=== PATIENT | female | born 1955 | race Caucasian/White ===

== ENCOUNTER 2020-07-22 16:41 | Outpatient (REF) | payer OTHER, SELFPAY | END 2020-07-22 16:42 | disposition home or self-care (01) | LOC: HO.LAB 16:41 | PROVIDERS: PCP Internal Medicine; Visit Provider Internal Medicine | DX: Z20.828 Contact with and (suspected) exposure to other viral communicable diseases (principal) | CPT/HCPCS: C9803; U0003 ==

== ENCOUNTER 2022-09-15 11:50 | Outpatient (REF) | payer MEDICARE, MEDICAID, SELFPAY ==
--- NOTE | ~2022-09-15 | XR_ITS ---
EXAMINATION: XR FOOT, RIGHT CLINICAL INFORMATION: Pain COMPARISON: None TECHNIQUE: AP, lateral, and oblique views of the right foot. FINDINGS: Osteopenia. No fracture or dislocation. Appropriate alignment. Joint spaces are mildly narrowed throughout the interphalangeal joints. There is prominent hypertrophic spurring at the plantar aponeurosis and Achilles insertion to the calcaneus. No ankle joint effusion. Vascular calcifications are present. XR/XR foot RT min 3V IMPRESSION: No fracture or malalignment. Prominent heel spurs. Mild degenerative changes.
== END 2022-09-15 11:51 | disposition home or self-care (01) ==
LOC: HO.HMGCX 11:50
PROVIDERS: Visit Provider Nurse Practitioner Family
DX: M79.672 Pain in left foot (principal)
CPT/HCPCS: 73630

== ENCOUNTER 2023-01-11 14:05 | Outpatient (REF) | payer MEDICARE, SELFPAY ==
--- NOTE | ~2023-01-11 | MM_ITS ---
EXAMINATION: BONE DENSITOMETRY CLINICAL INDICATION: Osteoporosis. COMPARISON: None (current study represents initial baseline exam). TECHNIQUE: Using a [employer] DXA System (software version: 13.1) manufactured by [employer], dual-energy x-ray absorptiometry was performed of the lumbar spine and left hip. The images are of good technical quality. Summary results are attached. FINDINGS: AP SPINE L1-L4: BMD 0.880 g/cm2, Z-score -0.8, T-score -2.5, osteoporosis. LEFT FEMUR, NECK: BMD 0.713 g/cm2, Z-score -0.8, T-score -2.3, osteopenia. LEFT FEMUR, TOTAL: BMD 0.719 g/cm2, Z-score -1.0, T-score -2.3, osteopenia. IDENTIFIED RISK FACTORS: Osteoporosis, menopause, secondary osteoporosis. HISTORY OF FRACTURE: None listed. MEDICATIONS: None listed. MM/XR DEXA axial skeleton IMPRESSION: 1. DIAGNOSIS: Osteoporosis based on the lowest T-score value of -2.5 in the lumbar spine applying World Health Organization criteria. 2. 10-YEAR FRACTURE RISK PREDICTION, FRAX: According to the guidelines, FRAX calculation should only be performed on patients in the osteopenia bone density category. Therefore, FRAX was not performed on this patient. 3. Treatment Recommendations: NOF guidelines recommend consideration for treatment in postmenopausal women and men age 50 and older presenting with the following: -A hip or vertebral (clinical or morphometric) fracture. -T-score less than or equal to -2.5 at the femoral neck or spine after appropriate evaluation to exclude secondary causes. -Low bone mass at the hip or spine and a 10-year fracture probability by FRAX of greater than or equal to 3% for hip fracture or greater than or equal to 20% for major osteoporotic fracture based on the [place] adapted WHO algorithm. 4. Other Recommendations: All treatment decisions require clinical judgment and consideration of individual patient factors, including patient preferences, comorbidities, previous drug use, risk factors not captured in the FRAX model (e.g. frailty, falls, vitamin D deficiency, increased bone turnover, interval significant decline in bone density) and possible under or overestimation of fracture risk by FRAX. Additional medical evaluation for secondary cause of low bone mineral density may be appropriate. FUTURE SCAN RECOMMENDATION: People with diagnosed cases of osteoporosis or at high risk for fracture should have regular bone mineral density tests. For patients eligible for Medicare, routine testing is allowed once every 2 years. The testing frequency can be increased to one year for patients who have rapidly progressing disease, those who are receiving or discontinuing medical therapy to restore bone mass, or have additional risk factors.
--- NOTE | ~2023-01-11 | MM_ITS ---
EXAMINATION: MM SCREENING DIGITAL BREAST TOMOSYNTHESIS, BILATERAL CLINICAL INFORMATION: Screening. Asymptomatic. The lifetime risk of breast cancer based on the Tyrer-Cuzick Model is 3%. COMPARISON: Outside mammography 08/01/2019, 07/31/2018, 06/29/2017 ([facility]). TECHNIQUE: Digital breast tomosynthesis is performed in both the craniocaudal and mediolateral oblique views along with computer-aided detection (CAD). Synthesized 2D images are generated from the tomosynthesis. FINDINGS: The breasts are almost entirely fatty (ACR BI-RADS breast composition Category a). Background stromal markings are similar to prior outside exams. There is no developing density or architectural abnormality. There is a small stable benign nodule posterior outer right breast, likely intramammary node. There are no significant masses, abnormal calcifications, or other abnormalities. The axilla and skin contours are unremarkable. MM/MM tomosynthesis screening BI IMPRESSION: No mammographic evidence of malignancy. ASSESSMENT: BI-RADS 2: Benign RECOMMENDATION: Routine annual mammography screening. This patient's information was entered into a reminder system with a target due date for their next mammogram.
== END 2023-01-11 14:06 | disposition home or self-care (01) ==
LOC: HO.MAMMO 14:05
PROVIDERS: PCP Nurse Practitioner Family; Visit Provider Nurse Practitioner Family
DX: Z12.31 Encounter for screening mammogram for malignant neoplasm of breast (principal); Z13.820 Encounter for screening for osteoporosis; Z78.0 Asymptomatic menopausal state; M81.0 Age-related osteoporosis without current pathological fracture
CPT/HCPCS: 77063; 77067; 77080

== ENCOUNTER 2023-04-11 10:03 | Outpatient (AMB) | payer MEDICARE, SELFPAY ==
[2023-04-11 10:12] VITALS: BP 149/84; PULSE 74; BMI 28.5
--- NOTE | 2023-04-11 10:12 | MHC.OFFVIS ---
Intake Vital Signs 04/11/23 10:12 Height 4 ft 11 in Weight 141 lb 1.533 oz BMI 28.5 BP 149/84 H Blood Pressure Location Lt brachial Position Sitting Pulse 74 Intake Visit Reasons: pre colonoscopy screening Intake Note: Leonor presents in office as a new.patient for a colonoscopy screening. PT CC: pt reports having GERD , 2nd colo pt denies any other GI Issues Theology Professor Required: Yes Theology Professor Language: Polish Accompanied by: Self / Same As Patient Allergies No Known Allergies Allergy (Unverified 04/11/23 10:14) HPI pre colonoscopy screening HPI Details 67 year old? female with past medical history of hypertension, bladder prolapse, osteoporosis is here today for pre colonoscopy screening.? Patient was sent to us by her PCP.? Patient had colonoscopy in 2010 that showed no polyps. Patient has a history of gastric bypass in 2005. Reports to have occasional acid reflux depending on what she eats.? Patient denies any gastrointestinal symptoms in the past or at present.? Denies any personal or family history of gastrointestinal disease, colon polyps, or cancer.? Denies history of difficulty with sedation or anesthesia in the past.? Negative for history of sleep apnea.? Denies any history of cardiac, renal, pulmonary, or hepatic disease.?? No history of infectious? diseases like hepatitis A, B, C, HIV or tuberculosis.? Patient is not on any anticoagulation therapy. PFSH Surgical History Hx of bariatric surgery Hx of section Family History Father Prostate cancer Hx of heart surgery HTN (hypertension) Mother HTN (hypertension) Diabetes High cholesterol Hx of heart surgery Social History Household Members: Significant Other Alcohol intake: never Patient Tobacco Use Status: Never used Tobacco Review of Systems Const Denies weight gain and Denies weight loss ENT Reports no additional complaints, Denies dysphagia and Denies odynophagia Card Reports no additional complaints Resp Reports no additional complaints GI Denies abdominal pain, Denies belching, Denies melena, Denies bloating, Denies change in bowel habits, Denies dysphagia, Denies excessive flatus, Denies dyspepsia, Denies heartburn, Denies diarrhea, Denies loose stools, Denies nausea, Denies odynophagia and Denies vomiting Musc Reports no additional complaints Neuro Reports no additional complaints Psych Reports no additional complaints Endo Reports no additional complaints Physical Exam Vital Signs: Last Vital Signs Pulse 74 04/11/23 10:12 BP 149/84 H 04/11/23 10:12 BMI result Body Mass Index 28.5 Const General: healthy appearing, no acute distress and well developed Nutritional Appearance: well nourished Orientation/consciousness: patient oriented x3 HEENT Head: Yes normal to inspection, Yes normocephalic and Yes atraumatic Face and sinus: Yes normal facial exam Mouth: Normal oral and palatal mucosa present Throat: Yes posterior oropharynx normal, Yes tonsils normal and Yes uvula midline Eyes General: appearance normal, both eyes and all related structures Neck Neck: Yes normal visual inspection, Yes full ROM and Yes trachea midline Thyroid: Thyroid normal Resp Effort & Inspection: normal respiratory effort, able to speak in complete sentences, no tracheal deviation and symmetric chest movement Auscultation: clear to auscultation bilaterally Cardio Rate: regular rate Heart sounds: S1 normal heart sound present and S2 normal heart sound present GI Inspection: Yes normal to inspection and No distended Palpation (GI): Soft to palpation, not firm, nontender and No hepatosplenomegaly present Auscultation: normal bowel sounds General: Yes no CVA tenderness Back/Spine/Pelvis Back: no CVA tenderness Skin General skin exam: elasticity normal, turgor normal and dry skin Neuro General: patient oriented x3 Psych Appearance: grossly normal Mental Status: mental status grossly normal Speech and movement: Normal speech and movement present Assessment & Plan Assessment & Plan (1) Screen for colon cancer: Code(s): Z12.11 - Encounter for screening for malignant neoplasm of colon Plan: Patient denies any GI, cardiac or respiratory symptoms.? Denies any issues with anesthesia in the past.? Denies any history of sleep apnea.? No history infectious diseases in the past or present.? Not on any anticoagulation therapy.? No family or personal history of colon cancer or polyps.? Patient denies melena, hematochezia, unintentional weight loss or ribbon like stools.? Discussed at length the pre-procedure,? prep, diet & medications as well as what to expect prior, during and after the procedure.?? Stressed the importance of good bowel prep. ?Recommended the use of Vaseline or Calmoseptine OTC & baby wipes with bowel movements to promote comfort.? ?Patient verbalizes understanding and agrees to plan of care.? She was given the opportunity to ask questions and all questions answered.? We will see her after the procedure.? Medications: New polyethylene glycol 3350 (Miralax) As directed by gastroenterology department at [facility] 238 grams PO ONCE 238 grams 0RF Z12.11 - Encounter for screening for malignant neoplasm of colon bisacodyl (Dulcolax (bisacodyl)) Empiece a akash 2 comprimidos cada noche 7 lockwood antes del procedimiento. 10 mg (2 x 5 mg) PO BEDTIME 14 tabs 0RF Z12.11 - Encounter for screening for malignant neoplasm of colon Coding Level of Care Code New Pt Level 3 (93659) Diagnoses Screen for colon cancer Z12.11 Time Spent (min) 40 Comment 30 minutes spent with patient and additional 10 minutes spent reviewing her records
== END 2023-04-11 10:53 | disposition home or self-care (01) ==
PROVIDERS: PCP Nurse Practitioner Family; Visit Provider Nurse Practitioner Family
DX: K21.9 Gastro-esophageal reflux disease without esophagitis (principal); Z12.11 Encounter for screening for malignant neoplasm of colon
CPT/HCPCS: 99203

== ENCOUNTER → 2023-04-11 10:03 | Outpatient (BNVA) | payer MEDICARE, SELFPAY | PROVIDERS: PCP Nurse Practitioner Family; Visit Provider Nurse Practitioner Family ==

== ENCOUNTER 2024-01-08 12:31 | Outpatient (REF) | payer MEDICARE, SELFPAY ==
[2024-01-08 13:35] LABS: Hemoglobin 14.6 g/dl (12.0-16.0); Mean Corpuscular Hemoglobin 29.9 pg (27.0-33.0); Mean Corpuscular Volume 88.1 fL (80.0-98.0); Mean Platelet Volume 10.1 fL (9.4-12.3); Platelet Count 183 X10*3/uL (160-400); Red Blood Count 4.88 X10*6/uL (4.20-5.50); Red Cell Distribution Width 12.6 % (11.0-16.0)
[2024-01-08 14:17] LABS: Alanine Aminotransferase 16 U/L (0-31); Alkaline Phosphatase 96 U/L (39-117); Anion Gap 11 (12-20); Aspartate Amino Transferase 22 U/L (5-31); Bilirubin Total 0.4 mg/dL (0.0-1.0); Blood Urea Nitrogen 14 mg/dL (9-16); Calcium 9.8 mg/dL (8.4-10.2); Carbon Dioxide 29 mmol/L (22-29); Chloride 108 mmol/L (96-108); Estimated Glomerular Filt Rate > 60; Glucose Random 89 mg/dL (60-115); Potassium 4.5 mmol/L (3.3-5.1); Sodium 143 mmol/L (135-145); Total Protein 7.4 g/dL (6.5-8.0)
[2024-01-08 14:25] LABS: TSH reflex Free T4 2.25 uIU/mL (0.32-4.0)
== END 2024-01-08 12:32 | disposition home or self-care (01) ==
LOC: HO.HHCL 12:31
PROVIDERS: Visit Provider Student in an Organized Health Care Education/Training Program
DX: R42 Dizziness and giddiness (principal)
CPT/HCPCS: 36415; 80053; 84443; 85027

== ENCOUNTER 2024-03-03 16:34 | Outpatient (REF) | payer OTHER, SELFPAY | END 2024-03-03 16:35 | disposition home or self-care (01) | LOC: HO.HHCLNP 16:34 | PROVIDERS: Visit Provider Nurse Practitioner Family | DX: R35.0 Frequency of micturition (principal); R82.79 Other abnormal findings on microbiological examination of urine | CPT/HCPCS: 87086; 87147 ==

== ENCOUNTER 2024-03-27 11:02 | Outpatient (REF) | payer OTHER, SELFPAY | END 2024-03-27 11:03 | disposition home or self-care (01) | LOC: HO.HHCLNP 11:02 | PROVIDERS: Visit Provider Nurse Practitioner Family | DX: R35.0 Frequency of micturition (principal) | CPT/HCPCS: 87086; 87147 ==

== ENCOUNTER 2024-07-25 11:35 | Outpatient (REF) | payer MEDICARE, SELFPAY | END 2024-07-25 11:36 | disposition home or self-care (01) | LOC: HO.MAMMO 11:35 | PROVIDERS: PCP Internal Medicine; Visit Provider Internal Medicine | DX: Z12.31 Encounter for screening mammogram for malignant neoplasm of breast (principal) | CPT/HCPCS: 77063; 77067 ==

== ENCOUNTER → 2024-07-25 11:45 | Outpatient (BNV) | payer MEDICARE, SELFPAY | PROVIDERS: PCP Internal Medicine; Visit Provider Internal Medicine | DX: Z12.31 Encounter for screening mammogram for malignant neoplasm of breast (principal) | CPT/HCPCS: 77063; 77067 ==

== ENCOUNTER 2025-03-09 16:46 | Outpatient (REF) | payer MEDICARE, OTHER, SELFPAY ==
--- OUTSIDE RECORDS SUMMARY | 2025-03-09 16:49 | XMS_ITS | Patient Health Record ---
Author Organization [employer] [facility] Address [address] [place] [address] Care Team Providers Care Restorative Care Technician Name Role Phone KEM KOVACS MD Primary Care Provider Nely Pereyra Unavailable [phone] Reason For Referral No Information Problems Problem Type SNOMED Code ICD Code Onset Dates Problem Status W/U Status Risk Notes Problem Midline cystocele (834222486) Cystocele without mention of uterine prolapse, midline (618.01) Active confirmed Problem Polyp of corpus uteri (75719184) Polyp of corpus uteri (621.0) Active confirmed Problem Herniation of rectum into vagina (430053690) Rectocele (N81.6) Active confirmed Problem Midline cystocele (324950820) Cystocele, midline (N81.11) Active confirmed Problem Uterovaginal prolapse (52669965) Uterovaginal prolapse, unspecified (N81.4) Active confirmed very mild Plan Of Treatment Pending Test Test Name Order Date Mammogram, left breast 09/21/2015 Ultrasound : Pelvic 03/19/2015 Insurance Providers Payer Name Payer Address Payer Phone Subscriber Number Group Number Insured Name Patient Relationship to Insured Coverage Start Date Coverage End Date [facility] [address] [place] [address] [id number] MELO NEWMAN Self - patient is the insured Medical (General) History Medical History History ICD Code Polyp of corpus uteri N84.0 Cystocele, unspecified N81.10 Postmenopausal atrophic vaginitis N95.2 Diabetes mellitus prior to weight loss, now resolved 250 Surgical History Surgery Date(Month/Year) c/s x 2 gastric bypass Hospitalization History Reason Date(Month/Year) see surgical hx
== END 2025-03-09 16:47 | disposition home or self-care (01) ==
LOC: HO.LNP 16:46
PROVIDERS: Visit Provider Internal Medicine
DX: R35.0 Frequency of micturition (principal)
CPT/HCPCS: 87086

== ENCOUNTER 2025-03-30 14:54 | Outpatient (REF) | payer MEDICARE, OTHER, SELFPAY ==
--- OUTSIDE RECORDS SUMMARY | 2025-03-30 14:00 | XMS_ITS | Encounter Summary ---
Author Organization [employer] Address [address] [place] [address] Care Team Providers Care Electroslag Welding Machine Operator Name Role Phone Maria Minaya MD Primary Care Provide r Reason for Visit * Reason Comments Rash Encounter Details Date Type Department Care Team (Late st Contact Info) Description 03/30/2025 2:00 PM EDT Office Visit [facility] [address], [place] [phone] Pruritic rash (Primary Dx); Athlete's foot on left Social History Tobacco Use Types Packs/Day Years Used Date Smoking Tobacco: Never Passive Smoke Exposure: Never Smokeless Tobacco: Never Alcohol Use Standard Drinks/Week Comments Never 0 (1 standard drink = 0.6 oz pur e alcohol) Depression Answer Date Recorded Patient Health Questionnaire-9 Score 0 03/09/2025 Patient Health Questionnaire-9 Score 0 03/09/2025 Last PHQ-9: Questionnaire Data Not on file 0 03/09/2025 Housing Stability Answer Date Recorded What is your housing situation today? I have mohit baltazar 06/20/[address] you li ve. Do you have problems with any of the following? None of the above 06/20/2024 Food Insecurity Answer Date Recorded Within the past 12 months, y ou worried that your food would run out before you got money to buy more: Never True 06/20/2024 Within the past 12 months,th e food you bought just didn't last and you didn't have enough money to get more: Never True Transportation Answer Date Recorded In the past 12 months, has l ack of transportation kept you from medical appts, meetings, work or from getting things needed for daily living? No 06/20/2024 Utilities Answer Date Recorded In the past 12 months, has t he electric, gas, oil or water [employer] threatened to shut off services in your home? No 06/20/2024 Depression Answer Date Recorded Patient Health Questionnaire-2 Score 0 03/09/2025 Internet Access Answer Date Recorded Internet Access Q1 Yes 06/20/2024 Internet Access Q2 Not on file 06/20/2024 Comments Unknown Sex and Gender Information Value Date Recorded Sex Assigned at Female 06/05/2022 10:14 AM EDT Legal Sex Female 10:14 AM EDT Gender Identity Female 09/01/2022 10:11 AM EST Sexual Orientation Choose not to disclose 2022 10:11 AM EST documented as of this encounter Last Filed Vital Signs Vital Sign Reading Time Taken Comments Blood Pressure 139/86 03/30/2025 1:56 PM EDT Pulse 86 03/30/2025 1:56 PM EDT Temperature 36.2 C (97.2 F) 03/30/2025 1:56 PM EDT Respiratory Rate 18 03/30/2025 1:56 PM EDT Oxygen Saturation 97% 03/30/2025 1:56 PM EDT Inhaled Oxygen Concentration - - Weight 64.4 kg (142 lb) 03/30/2025 1:56 PM EDT Height - - Body Mass Index 31.84 03/09/2025 11:03 AM EDT documented in this encounter Plan of Treatment Scheduled Orders Name Type Priority Associated Diagnoses Orde r Schedule Syphilis Screen Lab Routine Pruritic rash Expected: 03/30/2025, Expires: 03/30/2026 documented as of this encounter Visit Diagnoses Diagnosis Pruritic rash- Primary Athlete's foot on left documented in this encounter Additional Health Concerns Assessment Noted Time PHQ-9 Depression Total Score: 0 03/09/20 25 11:05 AM EDT documented as of this encounter Care Teams Electroslag Welding Machine Operator Relationship Specialty Start Date End Date Maria Minaya MD [address] [place] [address] PCP - General Internal Medicine 04/08/24 documented as of this encounter
--- OUTSIDE RECORDS SUMMARY | 2025-03-30 16:37 | XMS_ITS | Encounter Summary ---
Author Organization [employer] Address [address] [place] [address] Care Team Providers Care Chemical Plant Operator Supervisor Name Role Phone Belle Staley Primary Care Provider [phone] Maria Minaya MD Primary Care Provide r Reason for Referral * Imaging (Routine) - Closed Specialty Diagnoses / Procedures Referred By Rosina siegel Referred To Contact Diagnoses Screening mammogram for breast cancer Procedures BI Mammogram Screening Bilateral Belle Staley FNP [address] [place] [address] Phone: tel: fax: [address] Phone: tel: fax: Referral ID Status Reason Start Date Expiration Date Visits Re quested Visits Authorized [id number] Closed 12/05/2022 06/03/2023 1 1 Encounter Details Date Type Department Care Team (Late st Contact Info) Description 12/05/2022 Orders Only [facility] MEDICINE [address] [place] [address] Belle Staley FNP [address], [place] [phone] Screening mammogram for breast cancer (Primary Dx) Social History Tobacco Use Types Packs/Day Years Used Date Smoking Tobacco: Never Smokeless Tobacco: Never Alcohol Use Standard Drinks/Week Comments Never 0 (1 standard drink = 0.6 oz pur e alcohol) Depression Answer Date Recorded Patient Health Questionnaire-9 Score 7 11/29/2022 Depression Answer Date Recorded Patient Health Questionnaire-2 Score 4 11/29/2022 Comments Unknown Sex and Gender Information Value Date Recorded Sex Assigned at Female 06/05/2022 10:14 AM EDT Legal Sex Female 10:14 AM EDT Gender Identity Female 09/01/2022 10:11 AM EST Sexual Orientation Choose not to disclose 2022 10:11 AM EST COVID-19 Exposure Response Date Recorded In the last 10 days, have yo u been in contact with someone who was confirmed or suspected to have Coronavirus/COVID-19? No / Unsure 11/29/2022 2:37 PM EDT documented as of this encounter Plan of Treatment Scheduled Orders Name Type Priority Associated Diagnoses Orde r Schedule BI Mammogram Screening Bilateral Imaging Routine Screening mammogram for breast cancer Expected: 12/05/2022 (Approximate), Expires: 02/05/2024 documented as of this encounter Visit Diagnoses Diagnosis Screening mammogram for breast cancer- Primary documented in this encounter Additional Health Concerns Assessment Noted Time PHQ-9 Depression Total Score: 7 11/30/19 23 2:48 PM EDT documented as of this encounter Care Teams Chemical Plant Operator Supervisor Relationship Specialty Start Date End Date Belle Staley FNP [address] [place] [address] PCP - General Family Medicine 12/04/22 04/07/24 Maria Minaya MD [address] [place] [address] PCP - General Internal Medicine 04/08/24 documented as of this encounter
--- OUTSIDE RECORDS SUMMARY | 2025-03-30 16:37 | XMS_ITS | Encounter Summary ---
Author Organization [employer] Address [address] [place] [address] [address] [place] [address] Care Team Providers Care Mining And Quarrying Machinery Repairer Name Role Phone Belle Staley Primary Care Provider [phone] Maria Minaya MD Primary Care Provide r Encounter Details Date Type Department Care Team ([facility] st Contact Info) Description 01/03/2023 [facility] Health Information Management [address] [place] [address] Belle Staley FNP [address] [place] [address] Social History Tobacco Use Types Packs/Day Years [...] AM EST documented as of this encounter Plan of Treatment Not on file documented as of this encounter Visit Diagnoses Not on filedocumented in this encounter Additional Health Concerns Assessment Noted Time PHQ-9 Depression Total Score: 7 11/30/19 23 2:48 PM EDT documented as of this encounter Care Teams Mining And Quarrying Machinery Repairer Relationship Specialty Start Date End Date Belle Staley FNP [address] [place] [address] PCP - General Family Medicine 12/04/22 04/07/24 Maria Minaya MD [address] [place] [id number] PCP - General Internal Medicine 04/08/24 documented as of this encounter
--- OUTSIDE RECORDS SUMMARY | 2025-03-30 16:37 | XMS_ITS | Encounter Summary ---
Author Organization [employer] Address [address] [place] [address] Care Team Providers Care Facing Baster Name Role Phone Belle Staley Primary Care Provider [phone] Maria Minaya MD Primary Care Provide r Encounter Details Date Type Department Care Team (Late st Contact Info) Description 03/04/2024 Orders Only [facility] [address] [place] [address] Belle Staley FNP [address] [place] [address] Urinary frequency (Primary Dx) Social History Tobacco Use Types Packs/Day Years Used Date Smoking Tobacco: Never Smokeless Tobacco: Never Alcohol Use Standard Drinks/Week Comments Never 0 (1 standard drink = 0.6 oz pur e alcohol) Depression Answer Date Recorded Patient Health Questionnaire-9 Score 7 11/29/2022 Housing Stability Answer Date Recorded What is your housing situation today? I have mohit baltazar 06/07/[address] you li ve. Do you have problems with any of the following? None of the above 06/07/2023 Food Insecurity Answer Date Recorded Within the past 12 months, y ou worried that your food would run out before you got money to buy more: Never True 06/07/2023 Within the past 12 months,th e food you bought just didn't last and you didn't have enough money to get more: Never True 09/2022 Transportation Answer Date Recorded In the past 12 months, has l ack of transportation kept you from medical appts, meetings, work or from getting things needed for daily living? No 06/07/2023 Utilities Answer Date Recorded In the past 12 months, has t he electric, gas, oil or water [employer] threatened to shut off services in your home? No 06/07/2023 Depression Answer Date Recorded Patient Health Questionnaire-2 [...] on file documented as of this encounter Procedures Procedure Name Priority Date/Time Associated Diagnosis Comments CULTURE, URINE, ROUTINE Routine 03/27/2024 9:10 AM EDT Urinary frequency documented in this encounter Results * Culture, Urine, Routine (03/27/2024 9:10 AM EDT) Urine Urine specimen obtained by clean catch procedure / Unknown 03/27/2024 9:10 AM EDT 03/27/2024 11:27 AM EDT Comment:[facility] - 03/29/2024 8:28 AM EDT Urine Culture Report Result Urine Culture 10,000 to 50,000 cfu/ml Urine Culture Mixed bacterial jac characteristic of Urine Culture urogenital contamination. Strep agalactiae (Grp B) Quant 10,000 to 50,000 cfu/mL Susc N/A Susceptibility not routinely performed on this isolate. Specimen Source: Urine clean catch [facility] MICROBIOLOGY - GENERAL MELODIE POSEY Final Result [facility] [address] [place] [address] [phone] documented in this encounter Visit Diagnoses Diagnosis Urinary frequency- Primary documented in this encounter Additional Health Concerns Assessment Noted Time PHQ-9 Depression Total Score: 7 11/30/19 23 2:48 PM EDT documented as of this encounter Care Teams Facing Baster Relationship Specialty Start Date End Date Belle Staley FNP [address] [place] [address] PCP - General Family Medicine 12/04/22 04/07/24 Maria Minaya MD [address] [place] [id number] PCP - General Internal Medicine 04/08/24 documented as of this encounter
--- OUTSIDE RECORDS SUMMARY | 2025-03-30 16:37 | XMS_ITS | Patient Health Record ---
Author Organization [facility] Address [address] [place] [address] Care Team Providers Care Sales Office Manager Name Role Phone KEM KOVACS MD Primary Care Provider Nely Pereyra Unavailable [phone] Reason For Referral No Information Problems Problem Type SNOMED Code ICD Code Onset Dates Problem Status W/U Status Risk Notes Problem Midline cystocele (537536861) Cystocele without mention of uterine prolapse, midline (618.01) Active confirmed Problem Polyp of corpus uteri (85734512) Polyp of corpus uteri (621.0) Active confirmed Problem Herniation of rectum into vagina (955208505) Rectocele (N81.6) Active confirmed Problem Midline cystocele (393474745) Cystocele, midline (N81.11) Active confirmed Problem Uterovaginal prolapse (76688475) Uterovaginal prolapse, unspecified (N81.4) Active confirmed very mild Plan Of Treatment Pending Test Test Name Order Date Mammogram, left breast 09/21/2015 Ultrasound : Pelvic 03/19/2015 Insurance Providers Payer Name Payer Address Payer Phone Subscriber Number Group Number Insured Name Patient Relationship to Insured Coverage Start Date Coverage End Date [facility] [address] [place] [address] [id number] MELO NEWMAN Self - patient is the insured Medical (General) History Medical History History ICD Code Polyp of corpus uteri N84.0 Cystocele, unspecified N81.10 Postmenopausal atrophic vaginitis N95.2 Diabetes mellitus prior to weight loss, now resolved 250 Surgical History Surgery Date(Month/Year) c/s x 2 gastric bypass Hospitalization History Reason Date(Month/Year) see surgical hx
--- OUTSIDE RECORDS SUMMARY | 2025-03-30 16:38 | XMS_ITS | Clinical Summary ---
Author Organization [employer] Address [address] [place] [address] Care Team Providers Care Certified Tower Climber Name Role Phone Maria Minaya MD Primary Care Provide r Allergies Active Allergy Reactions Criticality Noted Date Comments Fexofenadine 02/28/2024 Other Reaction(s): Chill and irritability Medications famotidine (Pepcid) 20 MG tablet Take 1 tablet (20 mg) by mouth if needed at bedtime for heartburn. 30 tablet 01/08/20 24 Active simethicone (Mylicon) 80 MG tabletIndicatio ns:Gastroesopha geal reflux disease, unspecified whether esophagitis present Take 1 tablet (80 mg) by mouth if needed in the morning, at noon, in the evening, and at bedtime (take if needed after meals). 90 tablet 1 07/01/20 24 Active clobetasol (Temovate) 0.05 % ointment APPLY TOPICALLY TWICE A DAY 15 g 1 10/23/19 25 Active clobetasol (Temovate) 0.05 % ointmentIndicat ions:Chronic eczema Apply topically 2 times daily. 30 g 1 03/09/20 25 Active terbinafine (LamISIL AT) 1 % cream Apply topically 2 times daily. Apply in between toes of both feet. 15 g 1 03/30/20 25 Active cetirizine (ZyrTEC) 10 MG tablet Take 1 tablet (10 mg) by mouth if needed each day (itchy rash). 30 tablet 1 03/30/20 25 026 Active triamcinolone (Kenalog) 0.5 % cream Apply topically 2 times daily. Apply to itchy areas sparingly for 1 week. 15 g 1 03/30/20 Active lisinopril (Prinivil) 5 MG tabletIndicatio ns:Hypertension , unspecified type Take 1 tab daily 60 tablet 09/01/19 025 Discontinued simvastatin (Zocor) 5 MG tabletIndicatio ns:Hypertension , unspecified type Take 1 tablet (5 mg) by mouth at bedtime. 30 tablet 09/01/19 025 Discontinued nitrofurantoin, macrocrystal-mo nohydrate, (Macrobid) 100 MG capsuleIndicati ons:Urinary frequency Take 1 capsule (100 mg) by mouth 2 times daily for 7 days. 14 capsule 03/09/20 25 025 Active Problems Problem Noted Date Diagnosed Date Urinary frequency 03/09/2025 Assessment & Plan (03/09/2025 4:46 PM EDT): UA and culture patient will be contacted with results Macrobid will be prescribe empirically Encounter for screening mamm ogram for malignant neoplasm of breast 07/01/2024 GERD (gastroesophageal reflux disease) Assessment & Plan (07/01/2024 5:08 PM EST): I advise patient to avoid NSAIDs, spicy and acid food, I advise to eat at the same time every day, I advise to elevate the head of the bed and take medications as prescribe Obesity due to excess calories 02/28/2024 Carpal tunnel syndrome 02/28/2024 Chronic eczema 02/28/2024 Iron deficiency anemia 02/28/2024 Midline cystocele 02/28/2024 Polyp of corpus uteri 02/28/2024 Rectocele 02/28/2024 Tinnitus of both ears 02/28/2024 Overview (02/28/2024): Per Dr. James Resolved Per Dr. James Resolved Uterovaginal prolapse 02/28/2024 Metallic taste 01/08/2024 Assessment & Plan (01/08/2024 6:25 PM EDT): -reports metalic taste in mouth,denies epigastric pain ,states use special paste for dentures -diet changes -trial famotidine HS -discuss w dentist about paste if famotidine is not helping Vertigo 01/08/2024 Assessment & Plan (01/08/2024 6:25 PM EDT): Pt w symptoms suggestives for BPPV [facility] -Hallpike maneuver elicited vertigo ,no nystagmus noted. Normal neuro exam -neg orthostatic VS today -EKG today NSR,HR 69 , no ischemic findings -CBG today 124 -order today Chem,CBC, TSH -hydration and to change slowly from positions -meclizine prn -home head exerises advised -ENT referral today for chronic non pulsatile tinnitus and now vertigo -alarm signs ans symptoms discussed w pt Rash, skin 11/29/2022 Assessment & Plan (01/08/2024 6:25 PM EDT): pt w chronic skin rash for about 15 years , on and off ,itchy, round lesions, 3- 4 cm ,round erythematous, no signifiacnt scaly lesions,multiple in legs Psoarisis, ezcema ? -resume her clobetasol cream and referred to dermatology toay Hypertension 09/01/2022 Assessment & Plan (03/09/2025 4:43 PM EDT): I advised: - Aerobic exercise to reduce BP. Initial goal of 30 min walk 3-5x/week. Increase as tolerated. - low-sodium diet (goal: <2g/day) and heart healthy diet such as DASH to reduce BP and prevent ASCVD. - Home BP monitoring 1-2 x day with goal of <140/90. - Seek immediate medical attention for chest pain, palpitations, SOB, syncope, or sudden changes in mental status. - Do not change or discontinue current prescriptions without first consulting health care provider Assessment & Plan (07/01/2024 5:08 PM EST): I advised: - Aerobic exercise to reduce BP. Initial goal of 30 min walk 3-5x/week. Increase as tolerated. - low-sodium diet (goal: <2g/day) and heart healthy diet such as DASH to reduce BP and prevent ASCVD. - Home BP monitoring 1-2 x day with goal of <140/90. - Seek immediate medical attention for chest pain, palpitations, SOB, syncope, or sudden changes in mental status. - Do not change or discontinue current prescriptions without first consulting health care provider Assessment & Plan (01/08/2024 6:24 PM EDT): -Advised to bring home BP readings at next apt w PCP -pt off lisinopril for long time -here borderline Osteoporosis 10/22/2013 Allergic rhinitis 11/07/2012 Encounters Date Type Department Care Team Description 03/30/2025 2:00 PM EDT Office Visit [facility] [address] [place] [phone] Pruritic rash (Primary Dx); Athlete's foot on left 03/30/2025 Travel 03/09/2025 11:00 AM EDT Office Visit [facility] [address] [place] [phone] Maria Minaya MD Primary hypertension; Chronic eczema; Urinary frequency; Dietary counseling; Exercise counseling 03/09/2025 Travel 03/06/2025 Telephone [facility] [address] [place] [phone] Maria Minaya MD chart prep 03/02/2025 Patient Outreach [facility] [address] [place] [address] Maria Minaya MD Pre-visit Planning (SDOH was already completed) 12/30/2024 Telephone [facility] [address] [place] [phone] Maria Minaya MD CHART PREP from Last 3 Months Immunizations Immunization Administration Dates Next Due DT (pediatric) 12/20/2001 Influenza Quadrivalent Adjuvanted 06/02/2021 Influenza Whole 05/27/2007 Influenza injectable quadriv alent preservative free 08/10/2020 Influenza, IIV3, injectable 06/02/2021,1 ,08/10/2020,07/05,11/12/2014,08/27/2013,05/08/2012 ,05/06/2010 Influenza, seasonal, injecta ble, preservative free 05/20/2021,08/27/2013,05/06/2010 Pneumococcal Conjugate PCV 20 07/01/2024 Pneumococcal Polysaccharide PPSV23 12/20/2001 Tdap 11/07/2012 Zoster, Recombinant 07/16/2018 Family History Medical History Relation Name Comments Heart disease Father Diabetes type II Mother Heart disease Mother Diabetes type II Son Relation Name Status Comments Father Mother Son Social History Tobacco Use Types Packs/Day Years Used Date Smoking Tobacco: Never Passive Smoke Exposure: Never Smokeless Tobacco: Never Tobacco Cessation:Counseling Given: Not Answered Alcohol Use Standard Drinks/Week Comments Never 0 (1 standard drink = 0.6 oz pur e alcohol) Depression Answer Date Recorded Patient Health Questionnaire-9 Score 0 03/09/2025 Patient Health Questionnaire-9 Score 0 03/09/2025 Last PHQ-9: Questionnaire Data Not on file 0 03/09/2025 Housing Stability Answer Date Recorded What is your housing situation today? I have mohit delaney 06/20/[address] you li [...] t he electric, gas, oil or water company threatened to shut off services in your [...] not to disclose 2022 10:11 AM EST Last Filed Vital Signs Vital Sign Reading Time Taken Comments Blood Pressure 139/86 03/30/2025 1:56 PM EDT Pulse 86 03/30/2025 1:56 PM EDT Temperature 36.2 C (97.2 F) 03/30/2025 1:56 PM EDT Respiratory Rate 18 03/30/2025 1:56 PM EDT Oxygen Saturation 97% 03/30/2025 1:56 PM EDT Inhaled Oxygen Concentration - - Weight 64.4 kg (142 lb) 03/30/2025 1:56 PM EDT Height 142.2 cm (4' 8 ) 03/09/2025 11:03 AM EDT Body Mass Index 31.84 03/09/2025 11:03 AM EDT Plan of Treatment Health Maintenance Due Date Last Done Comments CT Colonography 1955 Colonoscopy 1955 FIT 1955 FOBT 1955 Sigmoidoscopy 1955 Hepatitis C Screening 11/17/1973 Zoster Vaccines (2 of 2) 09/10/2018 07/16/2018 DTaP/Tdap/Td Vaccines (2 - Td or Tdap) 11/07/2022 11/07/2012 COVID-19 Vaccine (4 - season) 2024 01/24/2021, 11/19/2020, 10/29/2020 Influenza Vaccine (#1) 2025 , 06/02/2021, 05/20/2021, Additional history exists Alcohol/Substance Use Screening 07/01/2025 07/01/2024 Mammogram 07/25/2025 07/25/2024, 06/0 03/2023, 01/11/2023 SDOH Screening 12/19/2025 12/19/2024 Depression Screening 03/09/2026 03/09/2025, 03/09/20 Tobacco Screening 03/30/2026 03/30/2025 Colorectal Cancer Screening 07/14/2027 FIT DNA/Cologuard 07/14/2027 07/14/2024 Lipid Panel 09/04/2027 09/04/2022 RSV Patients and Patients Aged 60 years or older (1 - 1-dose 75+ series) 11/17/2030 Pneumococcal Vaccine: 50+ Years Completed 07/01/2024, 12/20/2001 HIB Vaccines Aged Out No longer eligi ble based on patient's age to complete this topic HPV Vaccines Aged Out No longer eligi ble based on patient's age to complete this topic Hepatitis A Vaccines Aged Out No long er eligible based on patient's age to complete this topic Hepatitis B Vaccines Aged Out No long er eligible based on patient's age to complete this topic IPV Vaccines Aged Out No longer eligi ble based on patient's age to complete this topic Meningococcal B Vaccine Aged Out No l onger eligible based on patient's age to complete this topic Meningococcal Vaccine Aged Out No elroy nikia eligible based on patient's age to complete this topic RSV under 20 months Aged Out No longe r eligible based on patient's age to complete this topic Rotavirus Vaccines Aged Out No longer eligible based on patient's age to complete this topic Procedures Procedure Name Priority Date/Time Associated Diagnosis Comments POCT URINALYSIS DIPSTICK Routine 03/09/2025 12:10 PM EDT Urinary frequency CULTURE, URINE, ROUTINE Routine 03/09/2025 12:00 AM EDT Urinary frequency BI MAMMOGRAM SCREENING TOMOSYNTHESIS BILATERAL Routine 07/25/2024 11:40 AM EST Encounter for screening mammogram for malignant neoplasm of breast LAB COLOGUARD COLON CANCER SCREEN Routine 07/14/2024 9:45 AM EST Screening for colon cancer LIPID PANEL, STANDARD Routine 09/04/2022 8:40 AM EST Hypertension, unspecified type from Last 3 Months or Most Recently Relevant to Health Maintenance Results * (ABNORMAL) POCT Urinalysis (03/09/2025 12:10 PM EDT) Color, UA Yellow Clarity, UA Clear Glucose, UA Negative Bilirubin, UA Negative Ketones, UA Negative Spec Grav, UA 1.015 Blood, UA Positive(A) Negative, None Detected Comment:moderate pH, UA 5.5 Protein, UA Negative Urobilinogen, UA 0.2 Leukocytes, UA Trace Negative, Rare, Trace Nitrite, UA Negative Negative, None Detected Appearance, UA clear QC Media Lot # [id number] Lot# Expiration Date [id number] Urine 03/09/2025 12:1 0 PM EDT us Maria Lopez MD POINT OF CARE TEST EN TER/EDIT ORDERABLES Final Result * Culture, Urine, Routine (03/09/2025 12:00 AM EDT) Urine Urine specimen obtained by clean catch procedure / Unknown 03/09/2025 03/09/2025 Comment:UACC Narrative [facility] - 03/11/2025 10:06 AM EDT Urine Culture Report Result Urine Culture 50,000 to 100,000 cfu/ml Urine Culture Mixed bacterial jac characteristic of Urine Culture urogenital contamination. Specimen Source: Urine clean catch us Maria Lopez MD LAB MICROBIOLOGY - [facility] ORDERABLES Final Result [facility] [address] [place] [address] [phone] * BI Mammogram Screening Tomosynthesis Bilateral (07/25/2024 11:40 AM EST) Anatomical Region Laterality Modality Breast Bilateral Mammography 07/25/2024 11:4 0 AM EST Narrative 08/06/2024 8:46 AM EST [facility] [address] [place] [address] Mammography Report Signed Patient: Leonor House MR#: [id number] 32 : 1955 Acct:[id number] Age/Sex: 68 / F ADM Date: 07/25/24 Loc: JOHN Attending Dr: Maria Lopez MD Ordering Physician: Maria Minaya MD Results: 1Negative Date of Service: 07/25/24 Follow Up: 1 Year From Orig inal Mammogram Procedure(s): MM tomosynthesis screening BI Accession Number(s): [id number] cc: Maria Minaya MD EXAMINATION: MM SCREENING DIGITAL BREAST TOMOSYNTHESIS, BILATERAL CLINICAL INFORMATION: Screening. Asymptomatic. COMPARISON: Mammography: Comparison is made with available priors TECHNIQUE: Digital breast mammography with tomosynthesis is performed in both the craniocaudal and mediolateral oblique views along with computer-aided detection (CAD). FINDINGS: There are scattered areas of fibroglandular density (ACR BI-RADS breast composition Category b). There are no significant masses, abnormal calcifications, or other abnormalities. MM/MM tomosynthesis screening BI IMPRESSION: No mammographic evidence of malignancy. ASSESSMENT: BI-RADS BI-RADS 1 - Negative RECOMMENDATION: Routine annual mammography screening. 1 year F/U This examination should not preclude the clinical evaluation of a suspicious palpable abnormality. This patient's information was entered into a reminder system with a target due date for their next mammogram. Electronically signed by: Jaclyn Juan DO 08/06/2024 08:44 AM EST Dictated By: Jaclyn Juan DO Signed By: <Electronically signed by Jaclyn Juan DO in OV> 08/06/24 0844 DD/ 1140 TD/TT: 07/25/24 1150 Blueprint Engineer: Procedure Note Donotuseinterpreter, Image - 08/06/2024 [facility] [address] [place] [address] Mammography Report Signed Patient: Leonor House#: [id number] [birth year] : 6Acct:[id number] Age/Sex: 68 / FADM Date: 07/25/24 Loc: HO.MAMMO Attending Dr: Maria Lopez MD Ordering Physician: Maria Minaya MDResults: 1Negative Date of Service: 07/25/24Follow Up: 1 Year From Orig inal Mammogram Procedure(s): MM tomosynthesis screening BI Accession Number(s): [id number] cc: Maria Minaya MD EXAMINATION: MM SCREENING DIGITAL BREAST TOMOSYNTHESIS, BILATERAL CLINICAL INFORMATION: Screening. Asymptomatic. COMPARISON: Mammography: Comparison is made with available priors TECHNIQUE: Digital breast mammography with tomosynthesis is performed in both the craniocaudal and mediolateral oblique views along with computer-aided detection (CAD). FINDINGS: There are scattered areas of fibroglandular density (ACR BI-RADS breast composition Category b). There are no significant masses, abnormal calcifications, or other abnormalities. MM/MM tomosynthesis screening BI IMPRESSION: No mammographic evidence of malignancy. ASSESSMENT: BI-RADS BI-RADS 1 - Negative RECOMMENDATION: Routine annual mammography screening. 1 year F/U This examination should not preclude the clinical evaluation of a suspicious palpable abnormality. This patient's information was entered into a reminder system with a target due date for their next mammogram. Electronically signed by: Jaclyn Juan DO 08/06/2024 08:44 AM EST Dictated By: Jaclyn Juan DO Signed By: <Electronically signed by Jaclyn Juan DO in OV> 08/06/24 0844 DD/ 1140 TD/TT: 07/25/24 1150 Blueprint Engineer: Maria Lopez MD IMG BI PROCEDURES Wali herve Result - Final * Cologuard?? colon cancer screening (07/14/2024 9:45 AM EST) Cologuard Result Negative Negative 07/19/20 5:21 AM EST [facility] (CLIA #:[id number]) Comment: NEGATIVE TEST RESULT. A negative Cologuard result indicates a low likelihood that a colorectal cancer (CRC) or advanced adenoma (adenomatous polyps with more advanced pre-malignant features) is present. The chance that a person with a negative Cologuard test has a colorectal cancer is less than 1 in 1500 (negative predictive value >99.9%) or has an advanced adenoma is less than 5.3% (negative predictive value 94.7%). These data are based on a prospective cross-sectional study of 10,000 individuals at average risk for colorectal cancer who were screened with both Cologuard and colonoscopy. (Michelle Small al, N Engl J Med 2014;370(14):8201-0618) The normal value (reference range) for this assay is negative. COLOGUARD RE-SCREENING RECOMMENDATION: Periodic colorectal cancer screening is an important part of preventive healthcare for asymptomatic individuals at average risk for colorectal cancer. Following a negative Cologuard result, the [place] [employer] Society and U.S. Multi-Society Task Force screening guidelines recommend a Cologuard re-screening interval of 3 years. References: [place] [employer] Guideline for Colorectal Cancer Screening: https://www.cancer.org/cancer/qynbu-hidduw-vwjpqh/qrqjebnzn-bdrndncbr-xnkmghh/ac s-rec ommendations.html.; Lucien DK, Yasmeen CR, Yo ColonK, Colorectal Cancer Screening: Recommendations for Physicians and Patients from the U.S. Multi-Society Task Force on Colorectal Cancer Screening , Am J Gastroenterology 2017; 112:9408-0606. TEST DESCRIPTION: Composite algorithmic analysis of stool DNA-biomarkers with hemoglobin immunoassay. Quantitative values of individual biomarkers are not reportable and are not associated with individual biomarker result reference ranges. Cologuard is intended for colorectal cancer screening of adults of either sex, 45 years or older, who are at average-risk for colorectal cancer (CRC). Cologuard has been approved for use by the U.S. FDA. The performance of Cologuard was established in a cross sectional study of average-risk adults aged 50-84. Cologuard performance in patients ages 45 to 49 years was estimated by sub-group analysis of near-age groups. Colonoscopies performed for a positive result may find as the most clinically significant lesion: colorectal cancer [4.0%], advanced adenoma (including sessile serrated polyps greater than or equal to 1cm diameter) [20%] or non- advanced adenoma [31%]; or no colorectal neoplasia [45%]. These estimates are derived from a prospective cross-sectional screening study of 10,000 individuals at average risk for colorectal cancer who were screened with both Cologuard and colonoscopy. (Michelle Small al, N Engl J Med 2014;370(14):2590-4405.) Cologuard may produce a false negative or false positive result (no colorectal cancer or precancerous polyp present at colonoscopy follow up). A negative Cologuard test result does not guarantee the absence of CRC or advanced adenoma (pre-cancer). The current Cologuard screening interval is every 3 years. ([place] [employer] Society and U.S. Multi-Society Task Force). Cologuard performance data in a 10,000 patient pivotal study using colonoscopy as the reference method can be accessed at the following location: www.VetCentric/results. Additional description of the Cologuard test process, warnings and precautions can be found at www.Youtegord.com. Stool specimen (specimen) 07/14/2024 9:45 AM EST 07/15/2024 11:36 AM EST us Maria Lopez MD LAB MOLECULAR DIAGNOS TICS ORDERABLES Final Result [facility] (CLIA #:[id number]) [place] [address], * (ABNORMAL) Lipid Panel, Standard (09/04/2022 8:40 AM EST) Cholesterol, Total 106 <200 mg/dL [facility] [employer] [facility] [employer] HDL Cholesterol 38(L) > OR = 50 mg/dL [facility] Triglycerides 119 <150 mg/dL [employer] LDL Cholesterol 47 mg/dL (calc) [employer] Comment: Reference range: <100 Desirable range <100 mg/dL for primary prevention; <70 mg/dL for patients with CHD or diabetic patients with > or = 2 CHD risk factors. LDL-C is now calculated using the Jose De Jesus calculation, which is a validated novel method providing better accuracy than the Friedewald equation in the estimation of LDL-C. Brenden REBOLLEDO et al. BON. 2013;310(19): 7701-8090 (http://education.Udacity.Datanyze/faq/AKE891) Chol/HDLC Ratio 2.8 <5.0 (calc) [facility] Non-HDL Cholesterol 68 <130 mg/dL (calc) [facility] Comment: For patients with diabetes plus 1 major ASCVD risk factor, treating to a non-HDL-C goal of <100 mg/dL (LDL-C of <70 mg/dL) is considered a therapeutic option. Blood Venous blood specimen / Unknown 09/04/2022 8:40 AM EST 09/04/2022 8:40 AM EST Narrative [facility] - 09/04/2022 8:06 PM EST FASTING:YES FASTING: YES Monique Almeida MD LAB BLOOD ORDERABLES Final Resul t [facility] [address] [facility] [address] [facility] [facility], [place] [address] [facility] [address], ([address]) [place] [address] from Last 3 Months or Most Recently Relevant to Health Maintenance Insurance MEDICARE [facility] STANDARD Care Teams Certified Tower Climber Relationship Specialty Start Date End Date Maria Minaya MD [address] [place] [phone] PCP - General Internal Medicine 04/08/24
--- OUTSIDE RECORDS SUMMARY | 2025-03-30 16:38 | XMS_ITS | Encounter Summary ---
Author Organization [employer] Address [address] [place] [address] Care Team Providers Care Gold Burnisher Name Role Phone Maria Minaya MD Primary Care Provide r Encounter Details Date Type Department Care Team (Latest Contact Info) Description 03/30/2025 Travel Social History Tobacco Use Types Packs/Day Years [...] documented as of this encounter Care Teams Gold Burnisher Relationship Specialty Start Date End Date Maria Minaya MD [address] [place] [address] PCP - General Internal Medicine 04/08/24 documented as of this encounter
--- OUTSIDE RECORDS SUMMARY | 2025-03-30 16:38 | XMS_ITS | Encounter Summary ---
Author Organization [employer] Address [address] [facility] 7t [place] [address] Care Team Providers Care Process Coach Name Role Phone Belle Staley Primary Care Provider [phone] Maria Minaya MD Primary Care Provide r Reason for Visit * Reason Onset Date Comments Appointment Request 04/01/2024 Encounter Details Date Type Department Care Team ([facility] Contact Info) Description 04/01/2024 Telephone [facility] [address] [place], [place] [phone] Belle Staley FNP [address] [place] [address] Appointment Request Social History Tobacco Use Types Packs/Day Years [...] AM EST documented as of this encounter Miscellaneous Notes * Telephone Encounter - Quinten Wakefield - 04/01/2024 12:35 PM EDT Tc from pt requesting to reschedule Derm appt 04/02. Please contact pt at [phone]. (Beninese Speaker) documented in this encounter Plan of Treatment Not on file documented as of this encounter Visit Diagnoses Not on filedocumented in this encounter Additional Health Concerns Assessment Noted Time PHQ-9 Depression Total Score: 7 11/30/19 23 2:48 PM EDT documented as of this encounter Care Teams Process Coach Relationship Specialty Start Date End Date Belle Staley FNP [address] [place] [address] PCP - General Family Medicine 12/04/22 04/07/24 Maria Minaya MD [address] [place] [address] PCP - General Internal Medicine 04/08/24 documented as of this encounter
[2025-03-31 04:09] LABS: Syphilis Screen Nonreactive (Nonreactive)
== END 2025-03-30 14:55 | disposition home or self-care (01) ==
LOC: HO.HHCL 14:54
PROVIDERS: PCP Internal Medicine; Visit Provider Internal Medicine
DX: Z11.3 Encounter for screening for infections with a predominantly sexual mode of transmission (principal); L28.2 Other prurigo
CPT/HCPCS: 36415; 86780

== ENCOUNTER 2025-06-17 11:12 | Outpatient (REF) | payer MEDICARE, OTHER, SELFPAY ==
--- OUTSIDE RECORDS SUMMARY | 2025-06-17 10:30 | XMS_ITS | Encounter Summary ---
Author Organization [employer] Address [address] 7[address] [place] [address] Care Team Providers Care Night Warehouse Manager Name Role Phone Maria Minaya MD Primary Care Provide r Encounter Details Date Type Department Care Team (Late st Contact Info) Description 06/17/2025 10:30 AM EST Office Visit [facility] [address] [place], [place] [phone] Maria Minaya MD [address] [place], [place] [phone] Chronic eczema (Primary Dx); Hair loss Social History Tobacco Use Types Packs/Day Years [...] Sign Reading Time Taken Comments Blood Pressure 126/82 06/17/2025 10:49 AM EST Pulse 73 06/17/2025 10:49 AM EST Temperature 33.4 C (92.1 F) 06/17/2025 10:49 AM EST Respiratory Rate 16 06/17/2025 10:49 AM EST Oxygen Saturation 97% 06/17/2025 10:49 AM EST Inhaled Oxygen Concentration - - Weight 65 kg (143 lb 3.2 oz) 06/17/2025 10:49 AM EST Height 149.9 cm (4' 11 ) 06/17/2025 10:49 AM EST Body Mass Index 28.92 06/17/2025 10:49 AM EST documented in this encounter Plan of Treatment Scheduled Orders Name Type Priority Associated Diagnoses Orde r Schedule TSH W/Reflex to FT4 Lab Routine Hair loss Expected: 06/17/2025 (Approximate), Expires: 06/17/2026 documented as of this encounter Visit Diagnoses Diagnosis Chronic eczema- Primary Contact dermatitis and other eczema, due to unspecified cause Hair loss Unspecified alopecia documented in this encounter Additional Health Concerns Assessment Noted Time PHQ-9 Depression Total Score: 0 03/09/20 25 11:05 AM EDT documented as of this encounter Care Teams Night Warehouse Manager Relationship Specialty Start Date End Date Maria Minaya MD [address] [place] [address] PCP - General Internal Medicine 04/08/24 documented as of this encounter
--- OUTSIDE RECORDS SUMMARY | 2025-06-17 13:51 | XMS_ITS | Encounter Summary ---
Author Organization [employer] Address [address] [facility] 7t [place] [address] Care Team Providers Care Supervisor Underwriting Clerks Name Role Phone Belle Staley Primary Care Provider [phone] Maria Minaya MD Primary Care Provide r Reason for Referral * Imaging (Routine) - Closed Specialty Diagnoses / Procedures Referred By Rosina siegel Referred To Contact Diagnoses Screening mammogram for breast cancer Procedures BI Mammogram Screening Bilateral Belle Staley FNP [address] [place] [address] Phone: tel: fax: [address] Phone: tel: fax: Referral ID Status Reason Start Date Expiration Date Visits Re quested Visits Authorized [id number] Closed 12/05/2022 06/03/2023 1 1 Encounter Details Date Type Department Care Team (Late st Contact Info) Description 12/05/2022 Orders Only [facility] MED[facility] [address] [place] [address] Belle Staley FNP [address] [place], [place] [phone] Screening mammogram for breast cancer (Primary Dx) [...] documented as of this encounter Care Teams Supervisor Underwriting Clerks Relationship Specialty Start Date End Date Belle Staley FNP [address] [place] [address] PCP - General Family Medicine 12/04/22 04/07/24 Maria Minaya MD [address] [place] [address] PCP - General Internal Medicine 04/08/24 documented as of this encounter
--- OUTSIDE RECORDS SUMMARY | 2025-06-17 13:51 | XMS_ITS | Clinical Summary ---
Author Organization [employer] Address [address] [facility] 7t [place] [address] Care Team Providers Care Steel Rigger Name Role Phone Maria Minaya MD Primary Care Provide r Allergies Active Allergy Reactions Criticality Noted Date Comments Fexofenadine 02/28/2024 Other Reaction(s): Chill and irritability Nitrofurantoin Rash Low 03/30/2025 Medications famotidine (Pepcid) 20 MG tablet Take [...] feet. 15 g 1 03/30/20 25 Active triamcinolone (Kenalog) 0.5 % cream Apply topically 2 times daily. Apply to itchy areas sparingly for 1 week. 15 g 1 03/30/20 25 Active cetirizine (ZyrTEC) 10 MG tablet TAKE 1 TABLET BY MOUTH ONCE DAILY NEEDED FOR ITCHING 90 tablet 10/21/20 25 Active ketoconazole (NIZOral) 2 % shampooIndicati ons:Hair loss Apply topically 2 (two) times a week. 120 mL 2 06/18/20 Active cetirizine (ZyrTEC) 10 MG tablet Take 1 tablet (10 mg) by mouth if needed each day (itchy rash). 30 tablet 1 03/30/20 25 025 Discontinued Active Problems Problem Noted Date Diagnosed Date Hair loss 06/17/2025 Urinary frequency 03/09/2025 Assessment & Plan (03/09/2025 [...] EDT): Pt w symptoms suggestives for BPPV Homero -Hallpike maneuver elicited vertigo ,no nystagmus noted. [...] Encounters Date Type Department Care Team Description 06/17/2025 10:30 AM EST Office Visit [address] [address] Maria Minaya MD Chronic eczema (Primary Dx); Hair loss 06/17/2025 Travel 06/16/[address] [address] Maria Minaya MD Chart Prep 06/10/2025 Patient Outreach [address] [address] Maria Minaya MD Pre-visit Planning (SDOH screening completed on 12/19/24) 05/22/2025 Refill [facility] [address] [place] [address] Yesi Perry MD 04/02/2025 Results Follow-Up [facility] [address] [place], [place] [phone] Yesi Perry MD Syphilis Screen 03/30/2025 2:00 PM EDT Office Visit [facility] [address] [place] [address] Yesi Perry MD Pruritic rash (Primary Dx); Athlete's foot on left 03/30/2025 Travel from Last 3 Months Immunizations Immunization Administration [...] Mass Index 28.92 06/17/2025 10:49 AM EST Plan of Treatment Health Maintenance Due Date Last Done Comments CT Colonography 1955 Colonoscopy 1955 FIT 1955 Sigmoidoscopy 1955 HIB Vaccines (1 of 1 - Risk 1-dose series) 02/16/1957 Meningococcal Vaccine (1 - Risk 2-dose series) 11/17/1957 Meningococcal B Vaccine (1 of 4 - Increased Risk) 11/17/1965 Hepatitis C Screening 11/17/1973 Zoster Vaccines (2 of 2) 09/10/2018 07/16/2018 DTaP/Tdap/Td Vaccines (2 - Td or Tdap) 11/07/2022 11/07/2012, 12/20/2001 COVID-19 Vaccine (4 - season) 2025 01/24/2021, 11/19/2020, 10/29/2020 Influenza Vaccine (#1) 2025 , 06/02/2021, 05/20/2021, Additional history exists Alcohol/Substance Use Screening 07/01/2025 07/01/2024 FOBT 07/14/2025 07/14/2024 Mammogram 07/25/2025 07/25/2024, 06/0 03/2023, 01/11/2023 SDOH Screening 12/19/2025 12/19/2024 Depression Screening 03/09/2026 03/09/2025, 03/09/20 Tobacco Screening 06/17/2026 06/17/2025 Colorectal Cancer Screening 07/14/2027 FIT DNA/Cologuard 07/14/2027 07/14/2024 Lipid Panel 09/04/2027 09/04/2022 RSV Patients and Patients Aged 60 years or older (1 - 1-dose 75+ series) 11/17/2030 Pneumococcal Vaccine: 50+ Years Completed 07/01/2024, 12/20/2001 HPV Vaccines Aged Out No longer eligi [...] Procedure Name Priority Date/Time Associated Diagnosis Comments SYPHILIS SCREEN Routine 03/30/2025 3:05 PM EDT Pruritic rash BI MAMMOGRAM SCREENING TOMOSYNTHESIS BILATERAL Routine 07/25/2024 11:40 AM EST Encounter for screening mammogram for malignant neoplasm of breast LAB COLOGUARD COLON CANCER SCREEN Routine 07/14/2024 9:45 AM EST Screening for colon cancer LIPID PANEL, STANDARD Routine 09/04/2022 8:40 AM EST Hypertension, unspecified type from Last 3 Months or Most Recently Relevant to Health Maintenance Results * Syphilis Screen (03/30/2025 3:05 PM EDT) Syphilis Screen Nonreactive Nonreactive [facility] Blood 03/30/2025 3:05 PM EDT 03/30/2025 4:05 PM EDT us Yesi Perry MD LAB BLOOD ORDERABLES Final Re sult [facility] [address] [place] [phone] * BI Mammogram Screening Tomosynthesis Bilateral (07/25/2024 11:40 AM EST) Anatomical Region Laterality Modality Breast Bilateral Mammography 07/25/2024 11:4 0 AM EST Narrative 08/06/2024 8:46 AM EST [facility] [address] [place], [place] [address] Mammography Report Signed Patient: Leonor House MR#: [id number] 32 : 1955 Acct:[id number] Age/Sex: 68 / F ADM Date: 07/25/24 Loc: HO.MAMMO Attending Dr: Maria Lopez MD Ordering Physician: Maria Minaya MD Results: 1Negative Date of Service: 07/25/24 Follow Up: 1 Year From Orig inal Mammogram Procedure(s): MM tomosynthesis screening BI Accession Number(s): [id number] cc: Maria Minaya MD EXAMINATION: MM SCREENING [...] 08/06/24 0844 DD/ 1140 TD/TT: 07/25/24 1150 Grill Prep Cook: Procedure Note Donotuseinterpreter, Image - 08/06/2024 [facility] [address] [place] [address] Mammography Report Signed Patient: Leonor HouseMR#: [id number] 32 : 6Acct:[id number] Age/Sex: 68 / FADM Date: 07/25/24 Loc: HO.MAMMO Attending Dr: Maria Lopez MD Ordering Physician: Maria Minaya MDResults: 1Negative Date of Service: 07/25/24Follow Up: 1 Year From Orig inal Mammogram Procedure(s): MM tomosynthesis screening BI Accession Number(s): [id number] cc: Maria Minaya MD EXAMINATION: MM SCREENING [...] 08/06/24 0844 DD/ 1140 TD/TT: 07/25/24 1150 Grill Prep Cook: us Maria Lopez MD IMG BI PROCEDURES Wali herve Result - Final * Cologuard?? colon cancer screening (07/14/2024 9:45 AM EST) Cologuard Result Negative Negative 07/19/20 5:21 AM EST [facility] ([place] #:[id number]) Comment: NEGATIVE TEST RESULT. A negative Cologuard [...] (Michelle Small al, N Engl J Med 2014;370(14):9553-1126) The normal value (reference range) for this assay is negative. COLOGUARD RE-SCREENING RECOMMENDATION: Periodic colorectal cancer screening is an important part of preventive healthcare for asymptomatic individuals at average risk for colorectal cancer. Following a negative Cologuard result, the [place] Cancer Society and U.S. Multi-Society Task Force screening guidelines recommend a Cologuard re-screening interval of 3 years. References: [place] [employer] Society Guideline for Colorectal Cancer Screening: https://www.cancer.org/cancer/upzgy-zjxjzb-oexhnz/ehnfzpils-gkrbtgtyl-hcefcot/ac s-rec ommendations.html.; Lucien DK, Yasmeen ARMSTRONG, Yo ColonK, Colorectal Cancer Screening: Recommendations for Physicians and Patients from the U.S. Multi-Society Task Force on Colorectal Cancer Screening , Am J Gastroenterology 2017; 112:2288-5293. TEST DESCRIPTION: Composite algorithmic analysis of stool [...] screened with both Cologuard and colonoscopy. (Michelle Leonard et al, N Engl J Med 2014;370(14):5756-2687.) Cologuard may produce a false negative or false positive result (no colorectal cancer or precancerous polyp present at colonoscopy follow up). A negative Cologuard test result does not guarantee the absence of CRC or advanced adenoma (pre-cancer). The current Cologuard screening interval is every 3 years. ([place] Cancer Society and U.S. Multi-Society Task Force). Cologuard performance data in a 10,000 patient pivotal study using colonoscopy as the reference method can be accessed at the following location: www.[employer].Bottle/results. Additional description of the Cologuard test process, warnings and precautions can be found at www.NeurologixogNovaPlannerrd.com. Stool specimen (specimen) 07/14/2024 9:45 AM EST 07/15/2024 11:36 AM EST Maria Lopez MD LAB MOLECULAR DIAGNOS TICS ORDERABLES Final Result [facility] (CLIA #:[id number]) [place] [address] [place] [address], * (ABNORMAL) Lipid Panel, Standard (09/04/2022 8:40 AM EST) Cholesterol, Total 106 <200 mg/dL [facility] [place] [facility] HDL Cholesterol 38(L) > OR = 50 mg/dL [facility] [place] [facility] Triglycerides 119 <150 mg/dL [facility] [facility] LDL Cholesterol 47 mg/dL (calc) [facility] [facility] Comment: Reference range: <100 Desirable range <100 mg/dL for primary prevention; <70 mg/dL for patients with CHD or diabetic patients with > or = 2 CHD risk factors. LDL-C is now calculated using the Jose De Jesus calculation, which is a validated novel method providing better accuracy than the Friedewald equation in the estimation of LDL-C. Brenden SS et al. BON. 2013;310(19): 7310-9543 (http://education.Departing/faq/ORP474) Chol/HDLC Ratio 2.8 <5.0 (calc) [facility] [facility] Non-HDL Cholesterol 68 <130 mg/dL (calc) [facility] [facility] Comment: For patients with diabetes plus 1 major ASCVD risk factor, treating to a non-HDL-C goal of <100 mg/dL (LDL-C of <70 mg/dL) is considered a therapeutic option. Blood Venous blood specimen / Unknown 09/04/2022 8:40 AM EST 09/04/2022 8:40 AM EST Narrative [facility] - 09/04/2022 8:06 PM EST FASTING:YES FASTING: YES us Monique Almeida MD LAB BLOOD ORDERABLES Final Resul t [facility] [address], [place] [address] [facility] [facility] [address] [facility], ([address]) [place] [address] from Last 3 Months or Most Recently Relevant to Health Maintenance Insurance MEDICARE [facility] STANDARD Care Teams Steel Rigger Relationship Specialty Start Date End Date Maria Minaya MD [address] [place] [address] PCP - General Internal Medicine 04/08/24
--- OUTSIDE RECORDS SUMMARY | 2025-06-17 13:51 | XMS_ITS | Encounter Summary ---
Author Organization [employer] Address [address] [facility] [address] [place] [address] Care Team Providers Care Wellness Nurse Name Role Phone Maria Minaya MD Primary Care Provide r Encounter Details Date Type Department Care Team (Latest Contact Info) Description 06/17/2025 Travel Social History Tobacco Use Types Packs/Day [...] documented as of this encounter Care Teams Wellness Nurse Relationship Specialty Start Date End Date Maria Minaya MD [address] [place] [address] PCP - General Internal Medicine 04/08/24 documented as of this encounter
--- OUTSIDE RECORDS SUMMARY | 2025-06-17 13:51 | XMS_ITS | Patient Health Record ---
Author Organization [employer] [facility] Address [address] [facility] [address] [place] [address] Care Team Providers Care Lens Dotter Name Role Phone KEM KOVACS MD Primary Care Provider Nely Pereyra Unavailable [phone] Reason For Referral No Information Problems Problem Type SNOMED Code ICD Code Onset Dates Problem Status W/U Status Risk Notes Problem Midline cystocele (004832307) Cystocele without mention of uterine prolapse, midline (618.01) Active confirmed Problem Polyp of corpus uteri (68130746) Polyp of corpus uteri (621.0) Active confirmed Problem Herniation of rectum into vagina (054694684) Rectocele (N81.6) Active confirmed Problem Midline cystocele (083135111) Cystocele, midline (N81.11) Active confirmed Problem Uterovaginal prolapse (64593923) Uterovaginal prolapse, unspecified (N81.4) Active confirmed very mild Plan Of Treatment Pending Test Test Name Order Date Mammogram, left breast 09/21/2015 Ultrasound : Pelvic 03/19/2015 Insurance Providers Payer Name Payer Address Payer Phone Subscriber Number Group Number Insured Name Patient Relationship to Insured Coverage Start Date Coverage End Date [facility] [address] [place] [address] [phone] [id number] MELO NEWMAN Self - patient is the insured Medical (General) History Medical History History ICD Code Polyp of corpus uteri N84.0 Cystocele, unspecified N81.10 Postmenopausal atrophic vaginitis N95.2 Diabetes mellitus prior to weight loss, now resolved 250 Surgical History Surgery Date(Month/Year) c/s x 2 gastric bypass Hospitalization History Reason Date(Month/Year) see surgical hx
--- OUTSIDE RECORDS SUMMARY | 2025-06-17 13:51 | XMS_ITS | Encounter Summary ---
Author Organization [employer] Address [address] [facility] [address] 7t [place] [address] Care Team Providers Care Spa Director/Finance Name Role Phone Maria Minaya MD Primary Care Provide r Reason for Visit * Reason Onset Date Comments Chart Prep 06/16/2025 Encounter Details Date Type Department Care Team ([facility] st Contact Info) Description 06/16/2025 Telephone [facility] MEDICINE [address] [place], [place] [phone] Maria Minaya MD [address] [place], [place] [phone] Chart Prep Social History Tobacco Use Types Packs/Day Years [...] encounter Miscellaneous Notes * Telephone Encounter - Donna Fragoso MA - 06/16/2025 3:56 PM EST Chart Prep Labs: done Images: not applicable Referrals: appointment pending Vaccines due: Covid, Flu, Tdap, and Zoster Screenings: Hep C Screening Overdue care gaps: PHQ-9 and FRANCISCO-7 documented in this encounter Plan of Treatment Not on file documented as of this encounter Visit Diagnoses Not on filedocumented in this encounter Additional Health Concerns Assessment Noted Time PHQ-9 Depression Total Score: 0 03/09/20 25 11:05 AM EDT documented as of this encounter Care Teams Spa Director/Finance Relationship Specialty Start Date End Date Maria Minaya MD [address] [place] [address] PCP - General Internal Medicine 04/08/24 documented as of this encounter
--- OUTSIDE RECORDS SUMMARY | 2025-06-17 13:51 | XMS_ITS | Encounter Summary ---
Author Organization [employer] Address [address] [facility] 7t [place] [address] Care Team Providers Care Oil Field Caser Name Role Phone Belle Staley Primary Care Provider [phone] Maria Minaya MD Primary Care Provide r Reason for Visit * Reason Onset Date Comments Appointment Request 04/01/2024 Encounter Details Date Type Department Care Team ([facility] Contact Info) Description 04/01/[address] [facility] [address] [place], [place] [phone] Belle Staley FNP [address] [place] [address] Appointment Request Social History Tobacco Use Types [...] Derm appt 04/02. Please contact pt at [phone]. (Jamaican Speaker) documented in this encounter Plan of Treatment Not on file documented as of this encounter Visit Diagnoses Not on filedocumented in this encounter Additional Health Concerns Assessment Noted Time PHQ-9 Depression Total Score: 7 11/30/19 23 2:48 PM EDT documented as of this encounter Care Teams Oil Field Caser Relationship Specialty Start Date End Date Belle Staley FNP [address] [place] [address] PCP - General Family Medicine 12/04/22 04/07/24 Maria Minaya MD [address] [place] [address] PCP - General Internal Medicine 04/08/24 documented as of this encounter
--- OUTSIDE RECORDS SUMMARY | 2025-06-17 13:51 | XMS_ITS | Encounter Summary ---
Author Organization [employer] Address [address] [address] [facility] [facility] [address] 7t [place] [address] Care Team Providers Care Stretching Machine Tender Frame Name Role Phone Belle Staley Primary Care Provider [phone] Maria Minaya MD Primary Care Provide r Encounter Details Date Type Department Care Team (Late st Contact Info) Description 03/04/2024 Orders Only [facility] [address] [place] [address] Belle Staley FNP [address] [place] [address] Urinary frequency (Primary Dx) Social History Tobacco [...] t he electric, gas, oil or water [employer] threatened to shut off services in your [...] 9:10 AM EDT 03/27/2024 11:27 AM EDT Comment:[facility] - 03/29/2024 8:28 AM EDT Urine Culture Report Result Urine Culture 10,000 to 50,000 cfu/ml Urine Culture Mixed bacterial jac characteristic of Urine Culture urogenital contamination. Strep agalactiae (Grp B) Quant 10,000 to 50,000 cfu/mL Susc N/A Susceptibility not routinely performed on this isolate. Specimen Source: Urine clean catch Belle PER[facility] MICROBIOLOGY - GENERAL MELODIE POSEY Final Result [facility] [address] [place] [address] [phone] documented in this encounter Visit Diagnoses Diagnosis Urinary frequency- Primary documented in this encounter Additional Health Concerns Assessment Noted Time PHQ-9 Depression Total Score: 7 11/30/19 23 2:48 PM EDT documented as of this encounter Care Teams Stretching Machine Tender Frame Relationship Specialty Start Date End Date Belle Staley FNP [address] [place] [address] PCP - General Family Medicine 12/04/22 04/07/24 Maria Minaya MD [address] [place] [address] PCP - General Internal Medicine 04/08/24 documented as of this encounter
--- OUTSIDE RECORDS SUMMARY | 2025-06-17 13:51 | XMS_ITS | Encounter Summary ---
Author Organization [employer] Address [address] [place] [address] 7t [place] [address] Care Team Providers Care Genetic Counsellor Name Role Phone Belle Staley Primary Care Provider [phone] Maria Minaya MD Primary Care Provide r Encounter Details Date Type Department Care Team ([facility] st Contact Info) Description 01/03/2023 [facility] Health Information Management [address] [place] [address] Belle Staley FNP [address] [place] [address] Social History Tobacco Use Types Packs/Day Years [...] documented as of this encounter Care Teams Genetic Counsellor Relationship Specialty Start Date End Date Belle Staley FNP [address] [place] [address] PCP - General Family Medicine 12/04/22 04/07/24 Maria Minaya MD [address] [place] [address] PCP - General Internal Medicine 04/08/24 documented as of this encounter
== END 2025-06-17 11:13 | disposition home or self-care (01) ==
LOC: HO.HHCL 11:12
PROVIDERS: PCP Internal Medicine; Visit Provider Internal Medicine
DX: L65.9 Nonscarring hair loss, unspecified (principal)
CPT/HCPCS: 36415; 84443

== ENCOUNTER → 2025-07-31 11:15 | Outpatient (BNV) | payer MEDICARE, SELFPAY | PROVIDERS: PCP Internal Medicine; Visit Provider Internal Medicine | DX: Z12.31 Encounter for screening mammogram for malignant neoplasm of breast (principal) | CPT/HCPCS: 77063; 77067 ==

== ENCOUNTER 2025-07-31 11:16 | Outpatient (REF) | payer MEDICARE, OTHER, SELFPAY ==
--- NOTE | ~2025-07-31 | MM_ITS ---
EXAMINATION: MM SCREENING DIGITAL BREAST TOMOSYNTHESIS, BILATERAL CLINICAL INFORMATION: Screening. Asymptomatic. COMPARISON: Mammography: Comparison is made with available priors TECHNIQUE: Digital breast mammography with tomosynthesis is performed in both the craniocaudal and mediolateral oblique views along with computer-aided detection (CAD). FINDINGS: There are scattered areas of fibroglandular density. There are no significant masses, abnormal calcifications, or other abnormalities. MM/MM tomosynthesis screening BI IMPRESSION: No mammographic evidence of malignancy. ASSESSMENT: BI-RADS Category 1: Negative RECOMMENDATION: Routine annual mammography screening. 1 year F/U This examination should not preclude the clinical evaluation of a suspicious palpable abnormality. This patient's information was entered into a reminder system with a target due date for their next mammogram. Electronically signed by: Jaclyn Juan DO 08/03/2025 05:23 PM [facility]
--- OUTSIDE RECORDS SUMMARY | 2025-07-31 11:19 | XMS_ITS | Encounter Summary ---
Author Organization [employer] Address [address] [place] [address] 7t [place] [address] Care Team Providers Care Crystal Evaluator Name Role Phone Belle Staley Primary Care Provider [phone] Maria Minaya MD Primary Care Provide r Encounter Details Date Type Department Care Team ([facility] st Contact Info) Description 01/03/2023 [facility] Health Information Management [address] [place] [address] Belle Staley FNP [address] [place] [address] Social History Tobacco Use Types Packs/Day Years [...] documented as of this encounter Care Teams Crystal Evaluator Relationship Specialty Start Date End Date Belle Staley FNP [address] [place] [address] PCP - General Family Medicine 12/04/22 04/07/24 Maria Minaya MD [address] [place] [address] PCP - General Internal Medicine 04/08/24 documented as of this encounter
--- OUTSIDE RECORDS SUMMARY | 2025-07-31 11:19 | XMS_ITS | Encounter Summary ---
Author Organization [employer] Address [address] [facility] [address] [place] [address] Care Team Providers Care Shell Grader Name Role Phone Belle Staley Primary Care Provider [phone] Maria Minaya MD Primary Care Provide r Reason for Referral * Imaging (Routine) - Closed Specialty Diagnoses / Procedures Referred By Rosina siegel Referred To Contact Diagnoses Screening mammogram for breast cancer Procedures BI Mammogram Screening Bilateral Belle Staley FNP [address] [place] [address] Phone: tel: fax: [facility] [address] [place] [phone] Phone: tel: fax: Referral ID Status Reason Start Date Expiration Date Visits Re quested Visits Authorized [id number] Closed 12/05/2022 06/03/2023 1 1 Encounter Details Date Type Department Care Team (Late st Contact Info) Description 12/05/2022 Orders Only [facility] [address] [place] [address] Belle Staley FNP [address], [place] [phone] Screening mammogram for breast cancer (Primary Dx) [...] documented as of this encounter Care Teams Shell Grader Relationship Specialty Start Date End Date Belle Staley FNP [address] [place] [address] PCP - General Family Medicine 12/04/22 04/07/24 Maria Minaya MD [address] [place] [address] PCP - General Internal Medicine 04/08/24 documented as of this encounter
--- OUTSIDE RECORDS SUMMARY | 2025-07-31 11:19 | XMS_ITS | Clinical Summary ---
Author Organization [employer] Address [address] [facility] 7t [place] [address] Care Team Providers Care Real Estate Services Administrator Name Role Phone Maria Minaya MD Primary Care Provide r Allergies Active Allergy Reactions Criticality Noted Date Comments Fexofenadine 02/28/2024 Other Reaction(s): Chill and irritability Nitrofurantoin Rash Low 03/30/2025 Medications famotidine (Pepcid) 20 MG tablet Take 1 tablet (20 mg) by mouth if needed at bedtime for heartburn. 30 tablet 4 Active simethicone (Mylicon) 80 MG tabletIndication s:Gastroesophage al reflux disease, unspecified whether esophagitis present Take 1 tablet (80 mg) by mouth if needed in the morning, at noon, in the evening, and at bedtime (take if needed after meals). 90 tablet 1 4 Active clobetasol (Temovate) 0.05 % ointment APPLY TOPICALLY TWICE A DAY 15 g 1 5 Active clobetasol (Temovate) 0.05 % ointmentIndicati ons:Chronic eczema Apply topically 2 times daily. 30 g 1 5 Active terbinafine (LamISIL AT) 1 % cream Apply topically 2 times daily. Apply in between toes of both feet. 15 g 1 5 Active triamcinolone (Kenalog) 0.5 % cream Apply topically 2 times daily. Apply to itchy areas sparingly for 1 week. 15 g 1 5 Active cetirizine (ZyrTEC) 10 MG tablet TAKE 1 TABLET BY MOUTH ONCE DAILY NEEDED FOR ITCHING 90 tablet 5 Active ketoconazole (NIZOral) 2 % shampooIndicatio ns:Hair loss Apply topically 2 (two) times a week. 120 mL 2 06/18/2025 2:52 PM EST Active Active Problems Problem Noted Date Diagnosed Date [...] EDT): Pt w symptoms suggestives for BPPV [place] -Hallpike maneuver elicited vertigo ,no nystagmus noted. [...] Description 06/17/2025 10:30 AM EST Office Visit [facility] [address] [place] [phone] Maria Minaya MD Chronic eczema (Primary Dx); Hair loss 06/17/2025 Travel 06/16/[address] [facility] [address] [place] [address] Maria Minaya MD Chart Prep 06/10/2025 Patient Outreach [facility] [address] [place] [address] Maria Minaya MD Pre-visit Planning ([facility] screening completed on 12/19/24) 05/22/[address] [facility] [address] [place], [place] [phone] Yesi Perry MD from Last 3 Months Immunizations Immunization Administration [...] 1955 Colonoscopy 1955 FIT 1955 Sigmoidoscopy 1955 Alcohol/Substance Use Screening 1967 Hepatitis C Screening 11/17/1973 Zoster Vaccines (2 of 2) 09/10/2018 07/16/2018 DTaP/Tdap/Td Vaccines (2 - Td or Tdap) 11/07/2022 11/07/2012, 12/20/2001 COVID-19 Vaccine (4 - season) 2025 01/24/2021, 11/19/2020, 10/29/2020 Influenza Vaccine (#1) 2025 , 06/02/2021, 05/20/2021, Additional history exists FOBT 07/14/2025 07/14/2024 Mammogram 07/25/2025 07/25/2024, 06/0 03/2023, 01/11/2023 SDOH Screening 12/19/2025 12/19/2024 Depression Screening 03/09/2026 03/09/2025, 03/09/20 25 Tobacco Screening 06/17/2026 06/17/2025 Colorectal Cancer Screening [...] Procedure Name Priority Date/Time Associated Diagnosis Comments TSH W/REFLEX TO FT4 Routine 06/17/2025 1 1:15 AM EST Hair loss BI MAMMOGRAM SCREENING TOMOSYNTHESIS BILATERAL Routine 07/25/2024 11:40 AM EST Encounter for screening mammogram for malignant neoplasm of breast LAB COLOGUARD COLON CANCER SCREEN Routine 07/14/2024 9:45 AM EST Screening for colon cancer LIPID PANEL, STANDARD Routine 09/04/2022 8:40 AM EST Hypertension, unspecified type from Last 3 Months or Most Recently Relevant to Health Maintenance Results * TSH W/Reflex to FT4 (06/17/2025 11:15 AM EST) TSH reflex Free T4 2.92 0.32 - 4.0 uIU/mL [facility] Blood Venous blood specimen / Unknown 06/17/2025 11:15 AM EST 06/17/2025 12:52 PM EST us Maria Lopez MD LAB BLOOD ORDERABLES Final Result [facility] [address] [place] [phone] * BI Mammogram Screening Tomosynthesis Bilateral (07/25/2024 11:40 AM EST) Anatomical Region Laterality Modality Breast Bilateral Mammography 07/25/2024 11:4 0 AM EST Narrative 08/06/2024 8:46 AM EST [facility] [address] [place] [address] Mammography Report Signed Patient: Leonor House MR#: [id number] 32 : 1955 Acct:[id number] Age/Sex: 68 / F ADM Date: 07/25/24 Loc: HO.MAMMO Attending Dr: Maria Lopez MD Ordering Physician: Maria Minaya MD Results: 1Negative Date of Service: 07/25/24 Follow Up: 1 Year From Orig inal Mammogram Procedure(s): MM tomosynthesis screening BI Accession Number(s): [id number] cc: Maria Minaya MD EXAMINATION: MM SCREENING [...] 08/06/24 0844 DD/ 1140 TD/TT: 07/25/24 1150 Overhead Door Technician: Procedure Note Donotuseinterpreter, Image - [facility]/06/[facility] [address] [place], [place] [address] Mammography Report Signed Patient: Leonor HouseMR#: [id number] 32 : 6Acct:[id number] Age/Sex: 68 / FADM Date: 07/25/24 Loc: ALEX.MAMMO Attending Dr: Maria Lopez MD Ordering Physician: Maria Minaya MDResults: 1Negative Date of Service: 07/25/24Follow Up: 1 Year From Orig inal Mammogram Procedure(s): MM tomosynthesis screening BI Accession Number(s): [id number] cc: Maria Minaya MD EXAMINATION: MM SCREENING [...] 08/06/24 0844 DD/ 1140 TD/TT: 07/25/24 1150 Overhead Door Technician: Maria Lopez MD IM BI PROCEDURES Wali herve Result - Final * Cologuard?? colon cancer screening (07/14/2024 9:45 AM EST) Cologuard Result Negative Negative 07/19/20 5:21 AM EST [facility] (CLIA #:[id number]) Comment: NEGATIVE TEST RESULT. A negative Cologuard [...] (Michelle Small al, N Engl J Med 2014;370(14):6441-5969) The normal value (reference range) for this assay is negative. COLOGUARD RE-SCREENING RECOMMENDATION: Periodic colorectal cancer screening is an important part of preventive healthcare for asymptomatic individuals at average risk for colorectal cancer. Following a negative Cologuard result, the [place] Cancer Society and U.S. Multi-Society Task Force screening guidelines recommend a Cologuard re-screening interval of 3 years. References: [place] [employer] Society Guideline for Colorectal Cancer Screening: https://www.cancer.org/cancer/oqkyo-xegxwn-umzeve/xjluyzczs-vgsnblbzo-przwfgr/ac s-rec ommendations.html.; Lucien DK, Yasmeen ARMSTRONG, Yo ColonK, Colorectal Cancer Screening: Recommendations for Physicians and Patients from the U.S. Multi-Society Task Force on Colorectal Cancer Screening , Am J Gastroenterology 2017; 112:5879-6296. TEST DESCRIPTION: Composite algorithmic analysis of stool [...] (Michelle Small al, N Engl J Med 2014;370(14):5083-1290.) Cologuard may produce a false negative or false positive result (no colorectal cancer or precancerous polyp present at colonoscopy follow up). A negative Cologuard test result does not guarantee the absence of CRC or advanced adenoma (pre-cancer). The current Cologuard screening interval is every 3 years. ([place] Cancer Society and U.S. Multi-Society Task Force). Cologuard performance data in a 10,000 patient pivotal study using colonoscopy as the reference method can be accessed at the following location: www.Wav[employer].Magoosh/results. Additional description of the Cologuard test process, warnings and precautions can be found at www.AwarepointogGini & Jonyrd.com. Stool specimen (specimen) 07/14/2024 9:45 AM EST 07/15/2024 11:36 AM EST Maria Lopez MD LAB MOLECULAR DIAGNOS TICS ORDERABLES Final Result [facility] (CLIA #:[id number]) [place] [address] [place] [address], * (ABNORMAL) Lipid Panel, Standard (09/04/2022 8:40 AM EST) Cholesterol, Total 106 <200 mg/dL [facility] [place] [employer] HDL Cholesterol 38(L) > OR = 50 mg/dL [facility] [place] [employer] Triglycerides 119 <150 mg/dL [facility] [place] [employer] LDL Cholesterol 47 mg/dL (calc) [facility] [employer] Comment: Reference range: <100 Desirable range <100 mg/dL for primary prevention; <70 mg/dL for patients with CHD or diabetic patients with > or = 2 CHD risk factors. LDL-C is now calculated using the Jose De Jesus calculation, which is a validated novel method providing better accuracy than the Friedewald equation in the estimation of LDL-C. Brenden REBOLLEDO et al. BON. 2013;310(19): 4614-3368 (http://education.[employer].Magoosh/faq/NDD324) Chol/HDLC Ratio 2.8 <5.0 (calc) [facility] Non-HDL Cholesterol 68 <130 mg/dL (calc) [facility] Comment: For patients with diabetes plus 1 major ASCVD risk factor, treating to a non-HDL-C goal of <100 mg/dL (LDL-C of <70 mg/dL) is considered a therapeutic option. Blood Venous blood specimen / Unknown 09/04/2022 8:40 AM EST 09/04/2022 8:40 AM EST Narrative [facility] - 09/04/2022 8:06 PM EST FASTING:YES FASTING: YES us Monique Almeida MD LAB BLOOD ORDERABLES Final Resul t [facility] [address], [place] [address] [facility] [place] [employer] [address] [facility], ([address]) [place] [phone] from Last 3 Months or Most Recently Relevant to Health [place] [id number] [facility] STANDARD Care Teams Real Estate Services Administrator Relationship Specialty Start Date End Date Maria Minaya MD [address] [place] [address] PCP - General Internal Medicine 04/08/24
--- OUTSIDE RECORDS SUMMARY | 2025-07-31 11:19 | XMS_ITS | Encounter Summary ---
Author Organization [employer] Address [address] [facility] [place] [address] Care Team Providers Care Balance Wheel Screw Hole Driller Name Role Phone Belle Staley Primary Care Provider [phone] Maria Minaya MD Primary Care Provide r Encounter Details Date Type Department Care Team (Late st Contact Info) Description 03/04/2024 Orders Only [facility] [address] [place] [address] Belle Staley FNP [address] [place] [address] Urinary frequency (Primary Dx) Social History Tobacco [...] t he electric, gas, oil or water [employer] threatened to shut off services in your [...] 9:10 AM EDT 03/27/2024 11:27 AM EDT Comment:[facility] - 03/29/2024 8:28 AM EDT Urine Culture Report Result Urine Culture 10,000 to 50,000 cfu/ml Urine Culture Mixed bacterial jac characteristic of Urine Culture urogenital contamination. Strep agalactiae (Grp B) Quant 10,000 to 50,000 cfu/mL Susc N/A Susceptibility not routinely performed on this isolate. Specimen Source: Urine clean catch Belle PERDOMO LAB MICROBIOLOGY - GENERAL MELODIE POSEY Final Result [facility] [address] [place] [phone] [phone] documented in this encounter Visit Diagnoses Diagnosis Urinary frequency- Primary documented in this encounter Additional Health Concerns Assessment Noted Time PHQ-9 Depression Total Score: 7 11/30/19 23 2:48 PM EDT documented as of this encounter Care Teams Balance Wheel Screw Hole Driller Relationship Specialty Start Date End Date Belle Staley FNP [address] [place] [address] PCP - General Family Medicine 12/04/22 04/07/24 Maria Minaya MD [address] [place] [address] PCP - General Internal Medicine 04/08/24 documented as of this encounter
--- OUTSIDE RECORDS SUMMARY | 2025-07-31 11:19 | XMS_ITS | Encounter Summary ---
Author Organization [employer] Address [address] [facility] 7t [place] [address] Care Team Providers Care Specialized Developer Name Role Phone Belle Staley Primary Care Provider [phone] Maria Minaya MD Primary Care Provide r Reason for Visit * Reason Onset Date Comments Appointment Request 04/01/2024 Encounter Details Date Type Department Care Team ([facility] Contact Info) Description 04/01/2024 Telephone [facility] [address] [place], [place] [phone] Belle Staley FNP [address] [place] [address] Appointment Request Social History Tobacco Use Types [...] Derm appt 04/02. Please contact pt at [phone]. (Micronesian Speaker) documented in this encounter Plan of Treatment Not on file documented as of this encounter Visit Diagnoses Not on filedocumented in this encounter Additional Health Concerns Assessment Noted Time PHQ-9 Depression Total Score: 7 11/30/19 23 2:48 PM EDT documented as of this encounter Care Teams Specialized Developer Relationship Specialty Start Date End Date Belle Staley FNP [address] [place] [address] PCP - General Family Medicine 12/04/22 04/07/24 Maria Minaya MD [address] [place] [address] PCP - General Internal Medicine 04/08/24 documented as of this encounter
--- OUTSIDE RECORDS SUMMARY | 2025-07-31 11:19 | XMS_ITS | Patient Health Record ---
Author Organization [employer] [facility] Address [address] [facility] [address] [place] [address] Care Team Providers Care Executive Chef Name Role Phone KEM KOVACS MD Primary Care Provider Nely Pereyra Unavailable [phone] Reason For Referral No Information Problems Problem Type SNOMED Code ICD Code Onset Dates Problem Status W/U Status Risk Notes Problem Midline cystocele (295898498) Cystocele without mention of uterine prolapse, midline (618.01) Active confirmed Problem Polyp of corpus uteri (35062666) Polyp of corpus uteri (621.0) Active confirmed Problem Herniation of rectum into vagina (351977208) Rectocele (N81.6) Active confirmed Problem Midline cystocele (475010513) Cystocele, midline (N81.11) Active confirmed Problem Uterovaginal prolapse (15873762) Uterovaginal prolapse, unspecified (N81.4) Active confirmed very mild Plan Of Treatment Pending Test Test Name Order Date Mammogram, left breast 09/21/2015 Ultrasound : Pelvic 03/19/2015 Insurance Providers Payer Name Payer Address Payer Phone Subscriber Number Group Number Insured Name Patient Relationship to Insured Coverage Start Date Coverage End Date [facility] [address] [facility] [address] [place] [address] [id number] MELO NEWMAN Self - patient is the insured Medical (General) History Medical History History ICD Code Polyp of corpus uteri N84.0 Cystocele, unspecified N81.10 Postmenopausal atrophic vaginitis N95.2 Diabetes mellitus prior to weight loss, now resolved 250 Surgical History Surgery Date(Month/Year) c/s x 2 gastric bypass Hospitalization History Reason Date(Month/Year) see surgical hx
== END 2025-07-31 11:17 | disposition home or self-care (01) ==
LOC: HO.MAMMO 11:16
PROVIDERS: PCP Internal Medicine; Visit Provider Internal Medicine
DX: Z12.31 Encounter for screening mammogram for malignant neoplasm of breast (principal)
CPT/HCPCS: 77063; 77067